=== PATIENT | female | born 1965 | race Caucasian/White ===

== ENCOUNTER → 2021-08-07 13:45 | Outpatient (BNVA) | payer BC, SELFPAY | PROVIDERS: PCP Family Medicine; Visit Provider Family Medicine | DX: R25.1 Tremor, unspecified (principal); K76.0 Fatty (change of) liver, not elsewhere classified; Z13.1 Encounter for screening for diabetes mellitus; E03.9 Hypothyroidism, unspecified | CPT/HCPCS: 80053; 80061; 84443; 85025 ==

== ENCOUNTER 2021-11-28 13:23 | Outpatient (CLI) | payer OTHER, SELFPAY ==
--- NOTE | 2021-11-28 13:49 | XR_ITS ---
WS: [id number] Exam: XR hip LT 2-3V wo/w pel* [id number] Date/Time of Exam: 11/28/2021 1:49 PM Reason For Exam: S76.012A - Strain of muscle, fascia and tendon of left hi... Findings: No fractures or bone anomalies are noted. No unusual soft tissue masses or calcifications are seen. The bony elements of the hip are in adequate alignment. XR/XR hip LT 2-3V wo/w pel* [id number] IMPRESSION: Negative left hip. Tonnis classification: 0
== END 2021-11-28 13:24 | disposition home or self-care (01) ==
LOC: RAD 13:26
PROVIDERS: PCP Family Medicine; Visit Provider Emergency Medicine
DX: S76.012A Strain of muscle, fascia and tendon of left hip, initial encounter (principal); X58.XXXA Exposure to other specified factors, initial encounter
CPT/HCPCS: 73502

== ENCOUNTER → 2021-12-11 14:11 | Outpatient (BNVA) | payer OTHER, SELFPAY | PROVIDERS: PCP Family Medicine; Referring Provider Family Medicine; Visit Provider Nurse Practitioner Family | DX: M25.552 Pain in left hip (principal) | CPT/HCPCS: 73502 ==

== ENCOUNTER 2021-12-31 15:22 | Outpatient (CLI) | payer OTHER, SELFPAY ==
--- NOTE | 2021-12-31 16:00 | MR_ITS ---
WS: [id number] MRI LUMBAR SPINE NONCONTRAST TECHNIQUE: Sagittal T1, T2 and STIR imaging. Axial T1 and T2 imaging. CLINICAL INFORMATION: Left hip pain COMPARISON: None. FINDINGS: Mild lumbar curve. No acute compression. No high-grade central canal stenosis. LEFT subarticular disc extrusion L4-L5 extending into the LEFT subarticular recess and proximal LEFT neural foramen measuring 5 mm. Disc material measures 5 mm just above the L4-L5 disc space. L1-L2: Normal. L2-L3: Minimal annular bulging. Mild facet arthropathy. Spinal canal and foramen are patent. L3-L4: LEFT proximal foraminal protrusion with mild LEFT foraminal narrowing. Spinal canal and forame n are patent. Mild facet arthropathy. L4-L5: LEFT subarticular disc extrusion with cranial migration. This impinges the LEFT subarticular r ecess and extends into the LEFT proximal neural foramen. Impingement of the proximal exiting LEFT L4 nerve root and traversing LEFT L5 nerve root. RIGHT foramen is patent. Mild facet arthropathy. L5-S1: No significant disc bulging. Mild facet arthropathy. Spinal canal and foramen are patent. Visualized pelvic bony structures: Normal. Paravertebral soft tissues: Normal. Small disc protrusions in the thoracic spine at T7-T8, T9-T10, T11-T12 with slight contact of the tho racic cord at T9-T10. MR/MR lumbar spine wo con* [id number] IMPRESSION: 1. 5 mm LEFT subarticular disc extrusion with slight cranial migration. This i mpinges the LEFT subarticular recess and extends into the LEFT proximal neural foramen. Impingement of the proximal exiting LEFT L4 nerve root and traversing LEFT L5 nerve root. 2. LEFT proximal foraminal protrusion L3-L4 with mild LEFT foraminal narrowing . 3. Small disc protrusions in the thoracic spine at T7-T8, T9-T10, T11-T12 with slight contact of the thoracic cord at T9-T10.
== END 2021-12-31 15:23 | disposition home or self-care (01) ==
LOC: RAD 15:23
PROVIDERS: PCP Family Medicine; Visit Provider Nurse Practitioner Family
DX: M25.552 Pain in left hip (principal); M51.26 Other intervertebral disc displacement, lumbar region; M51.24 Other intervertebral disc displacement, thoracic region
CPT/HCPCS: 72148

== ENCOUNTER → 2022-01-02 10:41 | Outpatient (BNVA) | payer OTHER, SELFPAY | PROVIDERS: PCP Family Medicine; Visit Provider Physician Assistant | DX: M54.50 Low back pain, unspecified (principal) | CPT/HCPCS: 72100 ==

== ENCOUNTER 2022-01-22 06:00 | Outpatient (RCR) | payer OTHER, BC, SELFPAY | END 2022-02-05 23:59 | disposition home or self-care (01) | LOC: MPT 06:00 | PROVIDERS: PCP Family Medicine; Visit Provider Physician Assistant | DX: M54.50 Low back pain, unspecified (principal); M25.552 Pain in left hip; M25.551 Pain in right hip | CPT/HCPCS: 97110; 97162; G0283 ==

== ENCOUNTER 2022-02-06 06:00 | Outpatient (RCR) | payer OTHER, BC, SELFPAY | END 2022-03-07 23:59 | disposition home or self-care (01) | LOC: MPT 06:00 | PROVIDERS: PCP Family Medicine; Visit Provider Physician Assistant | DX: M54.50 Low back pain, unspecified (principal); M25.552 Pain in left hip; M25.551 Pain in right hip | CPT/HCPCS: 97110; G0283 ==

== ENCOUNTER 2022-03-08 06:00 | Outpatient (RCR) | payer OTHER, SELFPAY | END 2022-04-07 23:59 | disposition home or self-care (01) | LOC: MPT 06:00 | PROVIDERS: PCP Family Medicine; Visit Provider Physician Assistant | DX: M54.50 Low back pain, unspecified (principal); M25.552 Pain in left hip; M25.551 Pain in right hip | CPT/HCPCS: 97110; G0283 ==